=== PATIENT | male | born 1985 | race Hispanic/Latino ===

== ENCOUNTER 2021-01-23 15:53 | Inpatient (IN) | payer SELFPAY ==
[2021-01-23 17:06] LABS: Protime INR 1.33
[2021-01-23] MEDS ORDERED: NA CHLORIDE 0.9% 1,000 ML ONE ×2 (17:15→19:00)
[2021-01-23] MEDS ORDERED: MORPHINE 4 MG/ML SYR ONE (17:15)
[2021-01-23] MEDS ORDERED: ONDANSETRON 4 MG/2 ML VIAL ONE (17:15)
[2021-01-23] MEDS ORDERED: TETANUS & DIPHTHERIA TOX,ADULT 0.5 ML VIAL ONE (17:15)
[2021-01-23 17:16] LABS: Absolute Lymphocytes (CBC) 2.5 K/uL (0.7-4.9); Basophils % 1.1 % (0-1.3); Lymphocytes % 14.3 % (15.3-44.8); MPV 8.8 fL (7.6-11.3)
[2021-01-23 17:18] LABS: Albumin 3.6 g/dL (3.4-5.0); Bilirubin Direct 0.2 mg/dL (0-0.2); Bilirubin Total 0.7 mg/dL (0.2-1.0); Potassium 3.4 mmol/L (3.5-5.1); Protein, Total 9.2 g/dL (6.4-8.2)
--- NOTE | 2021-01-23 17:50 | RAD REPORT ---
EXAM DESCRIPTION: CT - Abdomen Pelvis W Contrast - 01/23/2021 5:39 pm CLINICAL HISTORY: Right gluteal abscess;Fever COMPARISON: <Comparisons> TECHNIQUE: Biphasic, helical CT imaging of the abdomen and pelvis was performed following 100 ml non -ionic IV contrast. No oral contrast. All CT scans are performed using dose optimization technique as appropriate and may include automated exposure control or mA/KV adjustment according to patient size. FINDINGS: No suspicious findings in the lung bases. Mild diffuse fatty infiltration of the liver with no focal lesion. No portal vein abnormality. Pancre as and spleen show no suspicious findings. Gallbladder and biliary tree are also without suspicious f inding. Symmetric renal function is seen with no hydronephrosis or suspicious renal mass. No pyelonephritis o r acute parenchymal process. No bladder abnormalities. No adrenal abnormalities. No dilated bowel loops or bowel wall thickening. No free air, free fluid or inflammatory stranding. No hernia, mass or bulky lymphadenopathy. No suspicious bony findings. In the medial inferior right buttocks there is a 7- 8 cm area of edematous/ inflammatory stranding. T his abuts the inferior aspect of the gluteal crease. The more concentrated area of stranding in the f atty tissue may be phlegmonous. However, there is no discrete drainable fluid collection. No air in t he soft tissues. More mild inflammatory stranding extends laterally 10-12 cm. Right-sided gluteal mus culature shows no edema or thickening. IMPRESSION: Extensive 7-8 centimeter area of infectious/inflammatory stranding in the medial inferio r right gluteal fatty tissues abutting the inferior gluteal crease. No abscess or drainable fluid collection identifiable. No air in the soft tissues. No involvement of the peritoneum or deep pelvic structures.
--- NOTE | 2021-01-23 18:06 | ER ---
Nurse's Notes [facility] Name: Anneliese Hicks Age: 35 yrs Sex: Male : 1985 Arrival Date: 01/23/2021 Time: 15:56 Bed 5 Private MD: Diagnosis: Cellulitis of buttock Presentation: 01/23 16:04 Chief complaint: Patient states: Abscess to R buttocks for 1 week. States he felt hot ll1 at home, no thermometer. Coronavirus screen: Client denies travel out of the [place] in the last 14 days. At this time, the client does not indicate any symptoms associated with coronavirus-19. Ebola Screen: Patient denies travel to an Ebola-affected area in the 21 days before illness onset. Initial Sepsis Screen: Does the patient meet any 2 criteria? HR > 90 bpm. No. Patient's initial sepsis screen is negative. Does the patient have a suspected source of infection? Yes: Skin breakdown/wound. Risk Assessment: Do you want to hurt yourself or someone else? Patient reports no desire to harm self or others. Onset of symptoms was January 26, 2021. 16:04 Method Of Arrival: Ambulatory ll1 16:04 Acuity: JAQUI 3 ll1 Triage Assessment: 16:10 General: Appears distressed, uncomfortable, Behavior is cooperative, appropriate for bp age, anxious. Pain: Complains of pain in buttocks. EENT: No deficits noted. Neuro: No deficits noted. Cardiovascular: No deficits noted. Respiratory: No deficits noted. GI: No signs and/or symptoms were reported involving the gastrointestinal system. : No signs and/or symptoms were reported regarding the genitourinary system. Derm: No deficits noted. Musculoskeletal: No deficits noted. Historical: - Allergies: 16:04 No Known Allergies; ll1 - PMHx: 16:04 None; ll1 - PSHx: 16:04 None; ll1 - Immunization history:: Flu vaccine is not up to date. - Social history:: Smoking status: Patient denies any tobacco usage or history of. Screenin:10 Abuse screen: Denies threats or abuse. Denies injuries from another. Nutritional bp screening: No deficits noted. Tuberculosis screening: No symptoms or risk factors identified. Fall Risk None identified. Assessment: 16:10 General: SEE TRIAGE NOTE. bp 17:00 Reassessment: No changes from previously documented assessment. Patient and/or family bp updated on plan of care and expected duration. Pain level reassessed. Patient is alert, oriented x 3, equal unlabored respirations, skin warm/dry/pink. ALL CURRENT ORDERS COMPLETE. 19:30 General: Appears in no apparent distress. comfortable, Behavior is calm, cooperative, rr5 appropriate for age. Neuro: Level of Consciousness is awake, alert, obeys commands, Oriented to person, place, time. Cardiovascular: Capillary refill < 3 seconds Patient's skin is warm and dry. Respiratory: Airway is patent Respiratory effort is even, unlabored, Respiratory pattern is regular, symmetrical. 20:35 Reassessment: Patient and/or family updated on plan of care and expected duration. Pain bb level reassessed. IV site intact, patent with fluids infusing Patient denies pain at this time. 20:41 Reassessment: report given to Jessica MARIANO for room 212. bb Vital Signs: 16:04 BP 129 / 88; Pulse 118; Resp 17; Temp 99.0; Pulse Ox 98% on R/A; Weight 102.51 kg; ll1 Height 5 ft. 7 in. (170.18 cm); Pain 10/10; 17:02 BP 128 / 90; Pulse 104; Resp 18; Pulse Ox 95% on R/A; mh5 17:07 BP 128 / 90; Pulse 103; Resp 17; Pulse Ox 95% ; bp 19:30 BP 125 / 80; Pulse 90; Resp 17; Pulse Ox 98% ; rr5 20:36 BP 131 / 86; Pulse 96; Resp 16 S; Temp 97.9(O); Pulse Ox 98% on R/A; Pain 0/10; bb 16:04 Body Mass Index 35.40 (102.51 kg, 170.18 cm) ll1 ED Course: 15:56 Patient arrived in ED. as 15:57 Fransisco Tate, GARCÍA is Primary Nurse. bp 15:58 Jeffery Dickey NP is PHCP. pm1 15:58 Alex Diaz MD is Attending Physician. pm1 16:03 Arm band placed on Patient placed in an exam room, on a stretcher. ll1 16:05 Triage completed. ll1 16:50 Initial lab(s) drawn, by me, sent to lab. First set of blood cultures drawn by mo, [facility] Second set of blood cultures drawn by mo, KENJI swab sent to lab. 16:52 Inserted saline lock: 18 gauge in left antecubital area, using aseptic technique. 5 16:53 Patient has correct armband on for positive identification. Placed in gown. Bed in low mh5 position. Call light in reach. Side rails up X 1. Adult w/ patient. Warm blanket given. Pulse ox on. NIBP on. 16:58 Warm blanket given. Pillow given. Verbal reassurance given. 5 17:01 PT-INR Sent. 5 17:01 Basic Metabolic Panel Sent. 5 17:01 CBC with Diff Sent. 5 17:01 Hepatic Function Sent. 5 17:01 Lipase Sent. [facility] 17:01 Lactate Sent. 5 17:02 Procalcitonin Sent. 5 17:02 Blood Culture Adult (2) Sent. mh5 17:39 CT Abd/Pelvis - IV Contrast Only In Process Unspecified. EDMS 18:05 Ace Diaz MD is Hospitalizing Provider. pm1 19:15 Primary Nurse role handed off by Fransisco Tate, GARCÍA mw2 19:39 Ace Mata RN is Primary Nurse. rr5 20:36 No provider procedures requiring assistance completed. Patient admitted, IV remains in bb place. Administered Medications: 16:50 Drug: morphine 4 mg Route: IVP; Site: left antecubital; bp 17:53 Follow up: Response: Pain is decreased bp 16:50 Drug: Zofran (Ondansetron) 4 mg Route: IVP; Site: left antecubital; bp 17:53 Follow up: Response: No adverse reaction bp 16:50 Drug: NS 0.9% 1000 ml Route: IV; Rate: 1000 ml; Site: left antecubital; bp 17:00 Drug: Tetanus-Diphtheria Toxoid Adult 0.5 ml {[employer]: [employer]. Exp: bp 01/17/2022. Lot #: [id number]. } Route: IM; Site: left deltoid; 17:54 Follow up: Response: No adverse reaction bp 18:00 Drug: LevaQUIN (levofloxacin) 750 mg Route: IVPB; Site: left antecubital; bp 19:30 Follow up: Response: No adverse reaction; IV Status: Completed infusion; IV Intake: rr5 100ml 18:00 Drug: NS 0.9% 1000 ml Route: IV; Rate: 125 ml/hr; Site: left antecubital; bp 20:49 Follow up: Response: No adverse reaction; IV Status: Infusion continued upon admission; rr5 IV Intake: 250ml 18:45 Drug: [place] (HYDROcodone-acetaminophen) 10 mg-325 mg 1 tabs Route: PO; bp 19:45 Follow up: Response: No adverse reaction rr5 19:45 Follow up: Response: No adverse reaction; RASS: Alert and Calm (0) rr5 20:30 Dru grams of (vancoMYCIN 1 grams, NS 0.9% 250 ml) Route: IVPB; Infused Over: 2 hrs; rr5 Site: left antecubital; 20:48 Follow up: IV Status: Infusion continued upon admission rr5 Intake: 19:30 IV: 100ml; Total: 100ml. rr5 20:49 IV: 250ml; Total: 350ml. rr5 Outcome: 18:05 Decision to Hospitalize by Provider. pm1 20:36 Admitted to Tele accompanied by tech, via stretcher, room 212, with chart. bb 20:36 Condition: stable 20:36 Instructed on the need for admit. 20:50 Patient left the ED. rr5 Signatures: Dispatcher [employer] EDChristine Wilson Brenda, RN RN bb Jeffery Dickey, BIOMEDICAL ENGINEERING DIRECTOR BIOMEDICAL ENGINEERING DIRECTOR pm1 Shayla Irizarry 5 Fransisco Tate, RN RN Jo Serrano 2 Ace Mata RN RN rr5 Theresa Guevara RN RN ll1 Corrections: (The following items were deleted from the chart) 18:14 17:01 CORONAVIRUS+MRDEVIN drawn and sent. [facility] [place]
--- NOTE | 2021-01-23 18:07 | EDPHYS ---
Physician Documentation [facility] Name: Anneliese Hicks Age: 35 yrs Sex: Male : 1985 Arrival Date: 01/23/2021 Time: 15:56 Bed 5 Private MD: ED Physician Alex Diaz HPI: 01/23 16:29 This 35 yrs old Male presents to ER via Ambulatory with complaints of Rectal pm1 Abscess. 16:29 the patient presents with a swollen area of the right gluteus tony. Description: pm1 raised, swollen. Onset: The symptoms/episode began/occurred 1 week(s) ago. Possible cause(s): unknown. Associated signs and symptoms: Pertinent positives: fever, for the past four days, Pertinent negatives: discharge, drainage. Modifying factors: the symptoms are alleviated by nothing, the symptoms are aggravated by walking, sitting. Severity of symptoms: in the emergency department the symptoms are actually worse. The patient has not experienced similar symptoms in the past. The patient has not recently seen a physician. Historical: - Allergies: 16:04 No Known Allergies; ll1 - PMHx: 16:04 None; ll1 - PSHx: 16:04 None; ll1 - Immunization history:: Flu vaccine is not up to date. - Social history:: Smoking status: Patient denies any tobacco usage or history of. ROS: 16:29 Cardiovascular: Negative for chest pain, palpitations, and edema, Respiratory: Negative pm1 for shortness of breath, cough, wheezing, and pleuritic chest pain, Abdomen/GI: Negative for abdominal pain, nausea, vomiting, diarrhea, and constipation. No pain with bowel movement Back: Negative for injury and pain, MS/Extremity: Negative for injury and deformity. 16:29 Neuro: Negative for headache, weakness, numbness, tingling, and seizure. 16:29 Constitutional: Positive for fever, Negative for poor PO intake. 16:29 Skin: Positive for Pain, swelling and erythema right buttocks area. 16:29 All other systems are negative. Exam: 16:29 Constitutional: This is a well developed, well nourished patient who is awake, alert, pm1 and in no acute distress. Head/Face: Normocephalic, atraumatic. 16:29 Eyes: Exam is negative for acute changes, Extraocular movements: intact throughout, Sclera: icterus, is not appreciated. 16:29 ENT: Exam is negative for acute changes, Mouth: Lips: normal, Oral mucosa: normal, pink and intact, moist. 16:29 Cardiovascular: Rate: tachycardic, Rhythm: regular, Pulses: no pulse deficits are appreciated. 16:29 Respiratory: Exam negative for acute changes, respiratory distress, shortness of breath. 16:29 Abdomen/GI: Inspection: abdomen appears normal, Palpation: abdomen is soft and non-tender, in all quadrants, Rectal exam: rectal tone normal, tenderness, is not appreciated, Annabelle lead cytogenetic technologist. 16:29 Skin: abscess, not appreciated, No fluctuance or discharge present, cellulitis, well demarcated, on the right gluteus tony. 16:29 Neuro: Exam negative for acute changes, Orientation: is normal, Mentation: is normal, Motor: is normal, moves all fours. Vital Signs: 16:04 BP 129 / 88; Pulse 118; Resp 17; Temp 99.0; Pulse Ox 98% on R/A; Weight 102.51 kg; ll1 Height 5 ft. 7 in. (170.18 cm); Pain 10/10; 17:02 BP 128 / 90; Pulse 104; Resp 18; Pulse Ox 95% on R/A; mh5 17:07 BP 128 / 90; Pulse 103; Resp 17; Pulse Ox 95% ; bp 19:30 BP 125 / 80; Pulse 90; Resp 17; Pulse Ox 98% ; rr5 20:36 BP 131 / 86; Pulse 96; Resp 16 S; Temp 97.9(O); Pulse Ox 98% on R/A; Pain 0/10; bb 16:04 Body Mass Index 35.40 (102.51 kg, 170.18 cm) ll1 MDM: 15:59 Patient medically screened. pm1 18:04 Data reviewed: vital signs. Data interpreted: Pulse oximetry: on room air is 95 %. pm1 Interpretation: normal. 18:04 Counseling: I had a detailed discussion with the patient and/or guardian regarding: the pm1 historical points, exam findings, and any diagnostic results supporting the discharge/admit diagnosis, lab results, radiology results, the need for further work-up and treatment in the hospital. 18:04 Physician consultation: Karl FELIX was contacted at 18:05, regarding admission, pm1 patient's condition, and will see patient in ED. 01/23 16:22 Order name: Procalcitonin; Complete Time: 17:45 pm1 01/23 16:22 Order name: Lactate; Complete Time: 17:25 pm1 01/23 16:22 Order name: Basic Metabolic Panel; Complete Time: 17:25 pm1 01/23 16:22 Order name: CBC with Diff; Complete Time: 17:25 pm1 01/23 16:22 Order name: Hepatic Function; Complete Time: 17:25 pm1 01/23 16:22 Order name: Lipase; Complete Time: 17:25 pm1 01/23 16:22 Order name: CT Abd/Pelvis - IV Contrast Only; Complete Time: 17:51 pm1 01/23 16:22 Order name: PT-INR; Complete Time: 17:25 pm1 01/23 16:22 Order name: Blood Culture Adult (2) pm1 01/23 19:10 Order name: SARS-COV-2 RT PCR; Complete Time: 19:17 EDKS 01/23 16:22 Order name: NPO; Complete Time: 16:52 pm1 01/23 16:22 Order name: IV Saline Lock; Complete Time: 16:51 pm1 01/23 16:22 Order name: Labs collected and sent; Complete Time: 16:51 pm1 01/23 19:25 Order name: Misc. Order: Give melatonin 10mg PO x 1; Complete Time: 20:35 la1 Administered Medications: 16:50 Drug: morphine 4 mg Route: IVP; Site: left antecubital; bp 17:53 Follow up: Response: Pain is decreased bp 16:50 Drug: Zofran (Ondansetron) 4 mg Route: IVP; Site: left antecubital; bp 17:53 Follow up: Response: No adverse reaction bp 16:50 Drug: NS 0.9% 1000 ml Route: IV; Rate: 1000 ml; Site: left antecubital; bp 17:00 Drug: Tetanus-Diphtheria Toxoid Adult 0.5 ml {Air Bag [employer]: [employer]. Exp: bp 01/17/2022. Lot #: [id number]. } Route: IM; Site: left deltoid; 17:54 Follow up: Response: No adverse reaction bp 18:00 Drug: LevaQUIN (levofloxacin) 750 mg Route: IVPB; Site: left antecubital; bp 19:30 Follow up: Response: No adverse reaction; IV Status: Completed infusion; IV Intake: rr5 100ml 18:00 Drug: NS 0.9% 1000 ml Route: IV; Rate: 125 ml/hr; Site: left antecubital; bp 20:49 Follow up: Response: No adverse reaction; IV Status: Infusion continued upon admission; rr5 IV Intake: 250ml 18:45 Drug: [place] (HYDROcodone-acetaminophen) 10 mg-325 mg 1 tabs Route: PO; bp 19:45 Follow up: Response: No adverse reaction rr5 19:45 Follow up: Response: No adverse reaction; RASS: Alert and Calm (0) rr5 20:30 Dru grams of (vancoMYCIN 1 grams, NS 0.9% 250 ml) Route: IVPB; Infused Over: 2 hrs; rr5 Site: left antecubital; 20:48 Follow up: IV Status: Infusion continued upon admission rr5 Disposition: 01/24 08:04 Co-signature as Attending Physician, Alex Diaz MD. rn Disposition: 01/23/21 18:05 Hospitalization ordered by Ace Diaz for Inpatient Admission. Preliminary diagnosis is Cellulitis of buttock. - Bed requested for Telemetry/MedSurg (Inpatient). - Status is Inpatient Admission. rr5 - Condition is Stable. - Problem is new. - Symptoms have improved. Signatures: Dispatcher [employer] EDKS Alex Diaz MD MD rn Attema, Lee, FAMILY LIVING EDUCATOR-C FAMILY LIVING EDUCATOR-Cla1 Betsy Rick, RN RN cg Jeffery Dickey, REGULATOR PIN INSERTER REGULATOR PIN INSERTER pm1 Fransisco Tate, RN RN bp Ace Mata, RN RN rr5 Theresa Guevara, GARCÍA RN ll1 Corrections: (The following items were deleted from the chart) 01/23 18:14 16:22 CORONAVIRUS+MR.LAB.FINA ordered. [facility] 20:11 18:05 Hospitalization Ordered by Ace Diaz MD for Inpatient Admission. Preliminary cg diagnosis is Cellulitis of buttock. Bed requested for Telemetry/MedSurg (Inpatient). Status is Inpatient Admission. Condition is Stable. Problem is new. Symptoms have improved. pm1 20:50 20:11 01/23/2021 18:05 Hospitalization Ordered by Ace Diaz MD for Inpatient rr5 Admission. Preliminary diagnosis is Cellulitis of buttock. Bed requested for Telemetry/MedSurg (Inpatient). Status is Inpatient Admission. Condition is Stable. Problem is new. Symptoms have improved. cg
[2021-01-23] MEDS ORDERED: Levofloxacin 750mg IV 750 MG/150 ML BAG IV ONE (19:00)
[2021-01-23] MEDS ORDERED: HYDROCODONE/APAP 10/325 TAB ONE (19:07)
--- NOTE | 2021-01-23 20:28 | P.HP ---
Certification for Inpatient Patient admitted to: Inpatient With expected LOS: >2 Midnights Patient will require the following post-hospital care: None Practitioner: I am a practitioner with admitting privileges, knowledge of patient current condition, hospital course, and medical plan of care. Services: Services provided to patient in accordance with Admission requirements found in Title 42 Section 412.3 of the Code of Federal Regulations Patient History Date of Service: 01/23/21 Primary Care Provider: none Reason for admission: Cellulitis right buttocks History of Present Illness: 35-year-old male with no significant past medical history presents emergency department for redness, warmth, pain to right gluteus. Patient evaluated in the emergency department, found to have significant amount of cellulitis presents the right gluteal area. White blood cell count 17.8 potassium 3.[address] demonstrates extensive 7-8 cm area of infectious/inflammatory stranding in the medial inferior right gluteal fatty tissues abutting the inferior gluteal crease. No abscess or drainable fluid collection identifiable, no air in the soft tissues, no involvement of the peritoneum or deep pelvic structures. Patient given Levaquin/vancomycin in the emergency department. ED provider wishes to admit for further evaluation and management. When I saw the patient in the ER he was awake, alert, orient x3, patient does not appear septic at this time. Case was discussed with General Surgery as cellulitis is extensive and with drainage. Will admit for further evaluation and management - Past Medical/Surgical History -: none -: none Psychosocial/ Personal History: Works in construction, lives with family - Family History Mother -: Hypertension, Diabetes - Social History Smoking Status: Never smoker Alcohol use: Yes CD- Drugs: No Caffeine use: Yes Place of Residence: Home Review of Systems 10-point ROS is otherwise unremarkable General: Malaise Integumentary: Rash, As per HPI Physical Examination - Physical Exam General: Alert, In no apparent distress, Oriented x3 HEENT: Atraumatic, PERRLA, Mucous membr. moist/pink Neck: Supple, 2+ carotid pulse no bruit, No LAD Respiratory: Clear to auscultation bilaterally, Normal air movement Cardiovascular: Regular rate/rhythm, Normal S1 S2 Gastrointestinal: Normal bowel sounds, No tenderness Musculoskeletal: No tenderness Integumentary: Erythema, Warmth, Other (Significant cellulitis right gluteal area with serosanguineous drainage) Neurological: Normal speech, Normal strength at 5/5 x4 extr, Normal tone, Normal affect Lymphatics: No axilla or inguinal lymphadenopathy - Studies Laboratory Data (last 24 hrs) 01/23/21 16:50: PT 15.3 H, INR 1.33 01/23/21 16:50: WBC 17.80 H, Hgb 13.1 L, Hct 40.0, Plt Count 356 01/23/21 16:50: Sodium 136, Potassium 3.4 L, BUN 12, Creatinine 1.30, Glucose 106, Total Bilirubin 0.7, AST 24, ALT 43, Alkaline Phosphatase 102, Lipase 124 Assessment and Plan - Plan Assessment Cellulitis right buttocks Plan Cellulitis right buttocks: Continue vancomycin/Levaquin general surgery consulted, recommendation for surgical debridement tomorrow morning. NPO after midnight, p.r.n. pain medications. Anticipate clinical improvement next 48-72 hr. Discharge Plan: Home Plan to discharge in: Greater than 2 days - Advance Directives Does patient have a Living Will: No Does patient have a Durable POA for Healthcare: No - Code Status/Comfort Care Code Status Assessed: Yes (Full code) Critical Care: No Time Spent Managing Pts Care (In Minutes): 55
[2021-01-23] MEDS ORDERED: VANCOMYCIN 1 GM/VIAL ONE (20:29)
[2021-01-23] MEDS ORDERED: NA CHLORIDE 0.9% 250 ML ONE ×2 (20:29→23:39)
[2021-01-23] MEDS ORDERED: MELATONIN 5 MG TABLET PO ONE (20:38)
[2021-01-23] MEDS ORDERED: ACETAMINOPHEN 500 MG TAB PO PRN (21:07)
[2021-01-23] MEDS ORDERED: ONDANSETRON 4 MG/2 ML VIAL IV PRN (21:07)
[2021-01-23] MEDS ORDERED: HYDROCODONE/APAP 7.5/325 MG TAB PO PRN (21:07)
[2021-01-23] MEDS ORDERED: MORPHINE 2 MG/ML SYR IV PRN (21:07)
[2021-01-23] MEDS ORDERED: VANCOMYCIN/NS 1 gm 1 GM/250 ML BAG IVPB SCH (21:07)
[2021-01-23] MEDS ORDERED: POTASSIUM CL SA 10 MEQ TAB PO ONE (21:15)
[2021-01-23] MEDS ORDERED: VANCOMYCIN 0.75 GM in NA CHLORIDE 0.9% 150 ML IVPB ONE (22:00)
[2021-01-23] MEDS ORDERED: DIPHENHYDRAMINE 50 MG/ML VIAL IV ONE (22:04)
[2021-01-23] MEDS: NA CHLORIDE 0.9% 1,000 ML IV SCH (22:12)
[2021-01-23] MEDS ORDERED: DIPHENHYDRAMINE 50 MG/ML VIAL ONE (22:28)
[2021-01-23 23:02] VITALS: BMI 39.9
[2021-01-23] MEDS: VANCOMYCIN 1 GM/VIAL ONE ×2 (23:39)
[2021-01-24] MEDS ORDERED: MORPHINE 2 MG/ML SYR IV PRN (03:19)
[2021-01-24 05:57] LABS: Absolute Lymphocytes (CBC) 2.9 K/uL (0.7-4.9); Basophils % 0.9 % (0-1.3); Hematocrit 37.9 % (39.6-49.0); Lymphocytes % 18.8 % (15.3-44.8); MPV 8.4 fL (7.6-11.3); RBC Red Blood Cell Count 4.28 M/uL (4.33-5.43)
[2021-01-24 06:24] LABS: Albumin 3.1 g/dL (3.4-5.0); Bilirubin Total 0.5 mg/dL (0.2-1.0); Potassium 3.8 mmol/L (3.5-5.1); Protein, Total 7.7 g/dL (6.4-8.2)
[2021-01-24] MEDS ORDERED: BUPIVACAINE 0.5% PF 10 ML VIAL ONE (07:43)
[2021-01-24] MEDS: Ringers Lactate 1,000 ML IV ONE ×2 (08:00→08:30)
[2021-01-24] MEDS ORDERED: LIDOCAINE 2% MPF 5 ML VIAL ONE (08:12)
[2021-01-24] MEDS ORDERED: propofoL 200 MG/20 ML VIAL IV ONE ×2 (08:12→08:46)
[2021-01-24] MEDS ORDERED: FENTANYL CITR 100 MCG/2 ML ONE (08:13)
[2021-01-24] MEDS: ENOXAPARIN 40 MG/0.4 ML SQ SCH (08:14)
[2021-01-24] MEDS ORDERED: dexAMETHasone 10 MG/ML VIAL ONE (08:34)
[2021-01-24] MEDS ORDERED: KETOROLAC 30 MG/ML INJ ONE (08:34)
[2021-01-24] MEDS ORDERED: ONDANSETRON 4 MG/2 ML VIAL ONE (08:34)
--- NOTE | 2021-01-24 08:43 | P.OP ---
Overhauler Helper: NONE,NONE Preoperative diagnosis: Abscess and cellulitis right buttock Postoperative diagnosis: same Primary procedure: I and D and Debridement Right buttock abscess Anesthesia: General Estimated blood loss: min Specimen: pus C&S, Debridemet tissue Findings: as above Complications: None Transferred to: Recovery Room Condition: Good
[2021-01-24] MEDS ORDERED: CHLORHEXIDINE GLUCO 4% 120 ML TOP SCH (09:17)
[2021-01-24] MEDS: MUPIROCIN 2% OINT 22GM TUBE TOP SCH ×2 (09:17→21:00)
--- NOTE | 2021-01-24 12:38 | PREOPCON ---
Date of Consultation: 01/23/2021 Reason: Infection, right buttock. History Of Present Illness: The patient is a 35-year-old gentleman who comes to the emergency room w ith redness, warmth, and pain to his right buttock present for about 4 days prior to admission. He h ad leukocytosis and had a CAT scan done, which showed 7 to 8 cm area of infection, inflammatory stran ding. There was no drainable fluid, however his wound is draining pus. The patient was given IV ant ibiotics. I was consulted. He is awake and alert. No sore throat, runny nose, cough, headaches, or dizziness. No chest pain. He has had low grade fever at home. Review of Systems: Otherwise unremarkable. Past Medical History: Negative. Past Surgical History: Negative. Allergies: NO ALLERGIES. Social History: He does not smoke. Drinks occasionally. He has been counseled. Family History: Significant for hypertension, diabetes in mother. Physical Examination: Vital Signs: Stable. He is currently afebrile. General: He is awake, alert, and oriented x3. Head and neck: Cranial 2 through 12 grossly within normal limits. No neck masses. No JVD. Throat clear. Neck is supple. Chest: Clear. Heart: S1 and S2. Abdomen: Soft. Extremities: Neurovascularly, intact. Neuro: Nonfocal. Skin: On the right buttock away from the anus, there is approximately a 6 x 6 cm area of erythema, w armth, edema, punctate holes with pus oozing, fluctuance present in the center, induration surroundin g, warmth, and tenderness. Laboratory Data: On admission was 17.8, today 15.6, INR is 1.32. Procalcitonin on admission was 0.[address] of the abdomen and pelvis reviewed as per HPI. Assessment: Abscess and cellulitis, right buttocks. Recommendation: N.p.o., IV fluid, IV antibiotic, to the OR for incision, drainage, and debridement. The patient understands the risks, benefits, and alternatives and agrees to procedure. The procedur e was explained to the as well. /MODL Voice ID: [id number] Report ID: [id number]
[2021-01-24] MEDS: NA CHLORIDE 0.9% 1,000 ML IV SCH ×2 (13:01→17:07)
[2021-01-24] MEDS: HYDROMORPHONE HCL 1 MG/ML INJ IV PRN ×2 (13:01→22:45)
[2021-01-24] MEDS: VANCOMYCIN 1.75 GM in NA CHLORIDE 0.9% 500 ML IVPB SCH (15:09)
--- NOTE | 2021-01-24 16:13 | P.PN ---
Subjective Date of Service: 01/24/21 Primary Care Provider: none Chief Complaint: Cellulitis right buttocks Subjective: Improving (seen s/p I&D, reports pain is controlled with medication. breathing ok, no nauesa/vomiting) Review of Systems 10-point ROS is otherwise unremarkable Physical Examination - Vital Signs Temperature: 97.7 F Blood Pressure: 111/68 Pulse: 75 Respirations: 18 Pulse Ox (%): 93 - Studies Laboratory Data (last 24 hrs) 01/23/21 16:50: PT 15.3 H, INR 1.33 01/23/21 16:50: WBC 17.80 H, Hgb 13.1 L, Hct 40.0, Plt Count 356 01/23/21 16:50: Sodium 136, Potassium 3.4 L, BUN 12, Creatinine 1.30, Glucose 106, Total Bilirubin 0.7, AST 24, ALT 43, Alkaline Phosphatase 102, Lipase 124 Assessment & Plan Physician Review Additional Text: Physical Exam General: Alert, In no apparent distress, Oriented x3 HEENT: Normal conjunctiva, sclerae anicteric Respiratory: Clear to auscultation bilaterally, Normal air movement Cardiovascular: Regular rate/rhythm, Normal S1 S2 Gastrointestinal: Soft, nontender, nondistended Integumentary: Surgical dressing in place Neurological: Normal speech, normal affect Problem list R buttock abscess -continue vanc/levaquin for now -general surgery consulted, s/p I&D of abscess, wet-dry dressing -continue pain medication PRN -discussed with surgery - possible dc tomorrow if pain tolerable, tolerating PO, and improvement of leukocytosis -will need MRSA coverage -f/u with Dr. Cuevas Dispo: anticipate dc home in next 24-48hrs Time Spent Managing Pts Care (In Minutes): 35
[2021-01-24] MEDS ORDERED: Levofloxacin500mg IV 500 MG/100 ML BAG IV SCH (18:00)
--- NOTE | 2021-01-24 19:37 | OP ---
Date of Procedure: 01/24/2021 Surgeon: Pepe Cuevas MD Tracer Bullet Section Supervisor: None. Preoperative Diagnosis: Right buttock abscess and cellulitis. Postoperative Diagnosis: Right buttock abscess and cellulitis. Procedure: Excisional debridement of a right buttock abscess, 6 x 6 cm, subcutaneous tissue with pul se irrigation. Estimated Blood Loss: Minimal. Specimen: Pus and debridement tissue. Finding: As above. Anesthesia: General. Complications: None. Disposition: The patient tolerated the procedure in stable condition, taken to Recovery in good gene ral condition. Procedure In Detail: The patient was brought to the OR and placed in supine position. General anest hesia begun. The patient was placed in the left lateral position, prepped and draped in usual steril e fashion. Marcaine 0.5% infiltrated locally. A 15-blade was used to make a 6 x 6 cm incision to ex cise all of the necrotic tissue that was present and deep to that was pus under pressure which was ev acuated. Loculations broken up. Necrotic tissue was debrided. Cultures were done. Then wound was pulse irrigated with saline and then bleeding was controlled with cautery and then wet-to-dry normal saline dressing change was applied. All of the necrotic tissue was debrided. The only healthy tissue remained. The patient tolerate the procedure in stable condition and taken to Re covery in good general condition. /MODL Voice ID: [id number] Report ID: [id number]
[2021-01-25] MEDS: NA CHLORIDE 0.9% 1,000 ML IV SCH ×2 (01:21→13:06)
[2021-01-25] MEDS: HYDROMORPHONE HCL 1 MG/ML INJ IV PRN (03:13)
[2021-01-25 05:35] LABS: Basophils % 0.5 % (0-1.3); Hematocrit 32.5 % (39.6-49.0); Lymphocytes % 12.8 % (15.3-44.8); MPV 8.5 fL (7.6-11.3); RBC Red Blood Cell Count 3.71 M/uL (4.33-5.43)
[2021-01-25 05:51] LABS: ALT/SGPT 40 U/L (12-78); AST/SGOT 23 U/L (15-37); Albumin 2.9 g/dL (3.4-5.0); Alkaline Phosphatase 85 U/L (45-117); BUN Blood Urea Nitrogen 9 mg/dL (7-18); Bicarbonate 25 mmol/L (21-32); Bilirubin Total 0.2 mg/dL (0.2-1.0); Glucose Level 126 mg/dL (74-106); Potassium 4.3 mmol/L (3.5-5.1); Protein, Total 7.1 g/dL (6.4-8.2); Sodium Level 138 mmol/L (136-145)
[2021-01-25] MEDS: MUPIROCIN 2% OINT 22GM TUBE TOP SCH (09:10)
[2021-01-25] MEDS: ENOXAPARIN 40 MG/0.4 ML SQ SCH (09:10)
--- NOTE | 2021-01-25 10:50 | PN ---
Date of Progress Note: 01/25/2021 Subjective: The patient is awake, alert. Has minimal pain. Objective: Vital Signs: Stable, afebrile. Extremities: Dressing is clean, dry, and intact. Laboratory Data: Culture is pending. Most likely Staph is growing in the Gram stain, most likely of MRSA. White count is still elevated, however. Assessment: Status post debridement of an infected abscess wound. Recommendations: Clinically, the patient is doing well. He can be discharged later today on oral an tibiotics, Cipro, and doxy. Follow up [facility] next week. Dressing order s given. Plan of care discussed with Dr. Diaz. GARRY/SUSAN Voice ID: [id number] Report ID: [id number]
[2021-01-25] MEDS: VANCOMYCIN 1.75 GM in NA CHLORIDE 0.9% 500 ML IVPB SCH (10:52)
[2021-01-25 12:28] VITALS: BP 119/70; TEMP 98.1
--- NOTE | 2021-01-25 12:53 | P.DS ---
Admission Date: 01/23/21 Discharge Date: 01/25/21 Primary Care Provider: none Disposition: ROUTINE DISCHARGE Discharge Condition: GOOD Reason for Admission: Cellulitis right buttocks Consultations: General Surgery - Dr. Cuevas Procedures: CT Abd/pelvis (01/23): FINDINGS: No suspicious findings in the lung bases. Mild diffuse fatty infiltration of the liver with no focal lesion. No portal vein abnormality. Pancreas and spleen show no suspicious findings. Gallbladder and biliary tree are also without suspicious finding. Symmetric renal function is seen with no hydronephrosis or suspicious renal mass. No pyelonephritis or acute parenchymal process. No bladder abnormalities. No adrenal abnormalities. No dilated bowel loops or bowel wall thickening. No free air, free fluid or inflammatory stranding. No hernia, mass or bulky lymphadenopathy. No suspicious bony findings. In the medial inferior right buttocks there is a 7- 8 cm area of edematous/ i nflammatory stranding. This abuts the inferior aspect of the gluteal crease. The more concentrated area of stranding in the fatty tissue may be phlegmonous. However, there is no discrete drainable fluid collection. No air in the soft tissues. More mild inflammatory stranding extends laterally 10-12 cm. Right- sided gluteal musculature shows no edema or thickening. IMPRESSION: Extensive 7-8 centimeter area of infectious/inflammatory stranding in the medial inferior right gluteal fatty tissues abutting the inferior gluteal crease. No abscess or drainable fluid collection identifiable. No air in the soft tissues. No involvement of the peritoneum or deep pelvic structures. I&D R buttock abscess (01/24) by Dr. Cuevas: Excisional debridement of a right buttock abscess, 6 x 6 cm, subcutaneous tissue with pulse irrigation. Problem list R buttock abscess Brief History of Present Illness: 35-year-old male with no significant past medical history presents emergency department for redness, warmth, pain to right gluteus. Patient evaluated in the emergency department, found to have significant amount of cellulitis presents the right gluteal area. White blood cell count 17.8 potassium 3.[address] demonstrates extensive 7-8 cm area of infectious/inflammatory stranding in the medial inferior right gluteal fatty tissues abutting the inferior gluteal crease. No abscess or drainable fluid collection identifiable, no air in the soft tissues, no involvement of the per itoneum or deep pelvic structures. Patient given Levaquin/vancomycin in the emergency department. ED provider wishes to admit for further evaluation and management. Hospital Course: Patient was empirically covered with antibiotics. General surgery was consulted and patient was subsequently taken to the operating room for I&D. Patient had improvement of his symptoms, remained afebrile, and was feeling better. Pain manageable with PO pain medication. There was high suspicion for MRSA. Cultures were obtained and will be followed up by general surgery. Patient was d ischarged with 2 week prescription for ciprofloxacin and doxycycline. He is to follow up in the wound healing center with Dr. Cuevas next week. Advised not to return to work until cleared by Dr. Cuevas. Wet-to-dry dressing changes daily. Family and patient educated. Follow up with PCP in 3-5 days. Vital Signs/Physical Exam: Physical Exam General: Alert, In no apparent distress, Oriented x3 HEENT: Normal conjunctiva, sclerae anicteric Respiratory: Clear to auscultation bilaterally, Normal air movement Cardiovascular: Regular rate/rhythm, Normal S1 S2 Gastrointestinal: Soft, nontender, nondistended Integumentary: Surgical dressing in place over R buttock Neurological: Normal speech, normal affect Temp Pulse Resp BP Pulse Ox 98.1 F 72 18 119/70 96 01/25/21 12:00 01/25/21 12:00 01/25/21 12:00 01/25/21 12:00 01/25/21 12:00 Laboratory Data at Discharge: WBC 15.60 K/uL (4.3-10.9) H 01/25/21 04:58 Hgb 11.2 g/dL (13.6-17.9) L 01/25/21 04:58 Hct 32.5 % (39.6-49.0) L 01/25/21 04:58 Plt Count 326 K/uL (152-406) 01/25/21 04:58 PT 15.3 SECONDS (9.5-12.5) H 01/23/21 16:50 INR 1.33 01/23/21 16:50 Sodium 138 mmol/L (136-145) 01/25/21 04:58 Potassium 4.3 mmol/L (3.5-5.1) 01/25/21 04:58 BUN 9 mg/dL (7-18) 01/25/21 04:58 Creatinine 0.78 mg/dL (0.55-1.3) 01/25/21 04:58 Glucose 126 mg/dL (74-106) H 01/25/21 04:58 Total Bilirubin 0.2 mg/dL (0.2-1.0) 01/25/21 04:58 AST 23 U/L (15-37) 01/25/21 04:58 ALT 40 U/L (12-78) 01/25/21 04:58 Alkaline Phosphatase 85 U/L (45-117) 01/25/21 04:58 Lipase 124 U/L (73-393) 01/23/21 16:50 Home Medications: Acetaminophen with Codeine [Tylenol with-Codeine #3 Tablet] 1 each PO Q6H 5 Days #20 tablet 01/25/21 Ciprofloxacin HCl 500 mg PO BID 14 Days #28 tablet 01/25/21 Doxycycline Hyclate 100 mg PO BID 14 Days #28 tablet 01/25/21 New Medications: Ciprofloxacin HCl 500 mg PO BID 14 Days #28 tablet Doxycycline Hyclate 100 mg PO BID 14 Days #28 tablet Acetaminophen with Codeine [Tylenol with-Codeine #3 Tablet] 1 each PO Q6H 5 Days #20 tablet Physician Discharge Instructions: You were diagnosed with a right buttock abscess. You required incision and drainage/debridement by Dr. Cuevas. You are discharged home with 2 weeks of antibiotics and some pain medication. Please perform daily wound dressing changes (wet to dry). Keep area clean and dry. Do not submerge area in water (no baths), ok to shower / running water is ok Follow up with Dr. Cuevas in the wound care clinic (Tuesdays/). Call the office to schedule the appointment. Recommend no work until you follow up and cleared by Dr. Cuevas. Diet: Regular Activity: Ad mily Followup: NONE,NONE [Primary Care Provider] - Pepe Cuevas MD [ACTIVE - CAN ADMIT] - Time spent managing pt's care (in minutes): 35
[2021-01-25 13:04] VITALS: O2SAT 98
[2021-01-25] MEDS ORDERED: VANCOMYCIN 2 GM in NA CHLORIDE 0.9% 500 ML IVPB SCH (22:00)
== END 2021-01-25 14:06 | disposition home or self-care (01) | DRG 572 ==
LOC: ER 15:53 → ERHOLD 18:44 → 2ND 20:29
PROVIDERS: ADMIT Hospitalist; ATTEND Hospitalist
PROC: 0JB90ZZ Excision of Buttock Subcutaneous Tissue and Fascia, Open Approach (ICD-10-PCS; principal; 2021-01-24 08:00)
DX: L02.31 Cutaneous abscess of buttock (principal); L03.317 Cellulitis of buttock; B95.8 Unspecified staphylococcus as the cause of diseases classified elsewhere; Z20.822 Contact with and (suspected) exposure to COVID-19
CPT/HCPCS: 36415; 74177; 80048; 80053; 80076; 80202; 83605; 83690; 84145; 85025; 85610; 87040; 87070; 87075; 87077; 87186; 87205; 88304; 90471; 90714; 96361; 96365; 96367; 96375; 99285; J1100; J1170; J1200; J1650; J2270; J2405; J2704; J3010; J3370; J7030; J7040; J7050; J7120; Q9967; U0003